=== PATIENT | male | born 1970 | race American Indian/Alaskan Native ===

== ENCOUNTER 2024-03-04 18:19 | Emergency (ER) | payer BC, OTHER ==
[2024-03-04] MEDS: Sodium Chloride 0.9% 10 ML Syringe FLUSH PRN (18:49)
[2024-03-04 18:54] LABS: BASOPHILS PERCENT AUTO 0.4 % (0.0-1.0); EOSINOPHILS PERCENT AUTO 2.6 % (1.0-3.0); HEMATOCRIT 49.8 % (40.0-54.0); HEMOGLOBIN 17.5 g/dL (14.0-18.0); LYMPHOCYTES PERCENT AUTO 49.1 % (20.5-50.1); MEAN CORPUSCULAR HEMOGLOBIN 30.5 pg (27.0-34.0); MEAN CORPUSCULAR HGB CONC 35.1 g/dL (33.0-35.0); MEAN CORPUSCULAR VOLUME 86.8 fL (80-100); MONOCYTES PERCENT AUTO 6.5 % (2-8); NEUTROPHILS PERCENT AUTO 41.4 % (42.2-75.2); PLATELET COUNT,PLT 280 10^3/uL (150-450); RED BLOOD CELL COUNT 5.74 10^6/uL (4.6-6.2); WHITE BLOOD CELL COUNT,WBC 7.9 10^3/uL (5.0-10.0)
[2024-03-04] MEDS: Metoprolol Tartrate 5 MG/5 ML SDV IVPUSH ONE (18:57)
[2024-03-04 19:14] LABS: A/G RATIO 1.3; ALBUMIN 4.4 g/dL (3.4-5.0); ANION GAP 15.4 mEq/L (7-13); BILIRUBIN TOTAL 1.3 mg/dL (0.2-1.0); BUN/CREATININE RATIO 12.2 (No establ ref range); CREATININE 0.98 mg/dL (0.70-1.30); EST CRCL DRUG DOSING (CG) 83.37 mL/min; POTASSIUM,K 3.4 mmol/L (3.5-5.1); PROTEIN TOTAL,TP 7.7 g/dL (6.4-8.2); TSH ULTRASENSITIVE 1.67 uIU/mL (0.36-3.74)
[2024-03-04] MEDS: Potassium Chloride 10 MEQ Tab.ER PO ONE (19:42)
== END 2024-03-04 19:52 | disposition home or self-care (01) ==
LOC: DL.ED 18:19
DX: I10 Essential (primary) hypertension (principal); E87.6 Hypokalemia; R00.2 Palpitations
CPT/HCPCS: 36415; 80053; 83735; 84443; 84484; 85025; 93005; 93010; 96374; 99284; 99285; A9270; J3490